=== PATIENT | female | born 1980 | race Caucasian/White ===

== ENCOUNTER 2016-08-17 03:35 | Emergency (ER) | payer MEDICAID ==
[~2016-08-17] VITALS: Ht 157.5 cm; Wt 66.5 kg
[~2016-08-17 03:35] MED LIST: AZIT250T94 PO
[2016-08-17 03:42] VITALS: Ht 157.5 cm; Wt 66.5 kg
[2016-08-17] MEDS ORDERED: HYDR-906 PO (04:32)
--- NOTE | 2016-08-17 05:47 | ERD ---
ER Documentation Chief Complaint Date/Time DATE: 08/17/16 TIME: 05:45 Chief Complaint right molar pain x 5 days. HPI 36-year-old female presents to emergency department for complaint of right upper molar pain for 5 days. Patient has seen a dentist, just finished dose of antibiotics, took ibuprofen for pain with only mild relief, described the pain as throbbing pain, 6/10 scale, worse upon eating. Patient has a scheduled removal of the molar this Tuesday. Patient is here today because pain is unbearable. Patient denies any facial swelling, patient denies any fever or chills. ROS All systems reviewed and are negative except as per history of present illness. Medications Home Meds Active Scripts Hydrocodone/Acetaminophen (Traphill 5-325 Tablet) 1 Each Tablet, 1 TAB PO Q6H Y for SEVERE PAIN LEVEL 7-10, #20 TAB Prov:JIGNESH CONROY NP 08/17/16 Azithromycin* (Zithromax*) 250 Mg Tablet, 250 MG PO .ZPACK DIRECTED, #6 TAB TAKE 500 MG (2 TABS) THE FIRST DAY THEN 250 MG (1 TAB) DAYS 2-5 Prov:JOANNA WHITING PA-C 11/20/14 Allergies Allergies: Coded Allergies: Fish Product Derivatives (Verified Allergy, Severe, RASH, 03/24/07) Penicillin G (Verified Allergy, Severe, RASHES, 03/24/07) PMhx/Soc Medical and Surgical Hx: pt denies Medical Hx, pt denies Surgical Hx History of Surgery: No (DENIES MEDICAL AND SURGICAL HX.) Hx Alcohol Use: No Hx Substance Use: No Hx Tobacco Use: No Smoking Status: Never smoker FmHx Family History: No coronary disease, No diabetes, No other Physical Exam Vitals Vital Signs Date Time Temp Pulse Resp B/P Pulse Ox O2 Delivery O2 Flow Rate FiO2 08/17/16 03:42 98.6 57 18 138/57 100 Physical Exam GENERAL: The patient is well developed and appropriate for usual state of health, in no apparent distress. HEENT: Atraumatic. Ears: Normal tympanic membrane, no erythema or bulging. No ear canal swelling. No ear discharge. Nose: normal nasal turbinates, no erythema or swelling. Normal nasal discharge. Throat: oropharynx clear. No tonsillar swelling or tonsillar exudates. No lymphadenopathy. Noted right upper third molar to be impacted and decayed. Noted some erythema and gingival area, no pustular discharge. No facial swelling noted. No facial redness noted. CHEST: Clear to auscultation bilaterally. There are no rales, wheezes or rhonchi. HEART: Regular rate and rhythm. No murmurs, clicks, rubs or gallops. No S3 or S4. ABDOMEN: Soft, nontender and nondistended. Good bowel sounds. No rebound or guarding. No gross peritonitis. No gross organomegaly or masses. No Parmar sign or McBurney point tenderness. BACK: No midline or flank tenderness. EXTREMITIES: Equal pulses bilaterally. There is no peripheral clubbing, cyanosis or edema. No focal swelling or erythema. Full range of motion. Grossly neurovascularly intact. NEURO: Alert and oriented. Cranial nerves 2-12 intact. Motor strength in all 4 extremities with 5/5 strength. Sensation grossly intact. Normal speech and gait. SKIN: There is no apparent rash or petechia. The skin is warm and dry. HEMATOLOGIC AND LYMPHATIC: There is no evidence of excessive bruising or lymphedema. No gross cervical, axillary, or inguinal lymphadenopathy. Procedures/MDM Medical decision making: Patient's dental pain most likely is from impacted molar, no symptoms of any dental abscess, ratio abscess, no symptoms of any sepsis at this time. Patient appears well and hemodynamically stable. Patient was given a prescription for Traphill for pain, is advised to go to the dental appointment for removal of her molar. Patient is advised to return to emergency department for any worsening symptoms, high fever, facial swelling, any other worsening symptoms. Otherwise, patient is advised to follow up with primary doctor in 3-5 days for reevaluation of symptoms. Departure Diagnosis: Primary Impression: Toothache Condition: Stable Patient Instructions: Dental Pain JIGNESH CONROY NP Aug 17, 2016 05:47
== END 2016-08-17 04:48 | disposition home or self-care (01) ==
LOC: FTE 03:35
DX: K08.89 Other specified disorders of teeth and supporting structures (principal)
CPT/HCPCS: 99283